=== PATIENT | male | born 1970 | race African-American/Black ===

== ENCOUNTER → 2017-04-05 | Day surgery (SDC) | payer MEDICARE, OTHER ==
[~2017-04-05] MED LIST: ACETAMINOPHEN 1000 MG/100 ML 100 ML IV ONE; ACETAMINOPHEN/HYDROcodone 325 MG/5 MG TAB ONE; BUPIVACAINE/EPINEPHRINE 0.25% 50 ML VIAL ONE; LIDOCAINE 1.5%/EPINEPHrine 1:200,000 PF SOLN 30 ML AMP ONE; MEPERIDINE HCL 25 MG/ML VIAL ONE; MIDAZOLAM HCL 2 MG/2 ML VIAL ONE; MORPHINE SULFATE 4 MG/ML INJ ONE; PROPOFOL 200 MG/20 ML AMP IV ONE; SODIUM CHLOR 0.9% 250 ML BAG IV ONE; VANCOMYCIN HCL 1000 MG VIAL ONE; ceFAZolin INJ 1,000 MG VIAL ONE
--- NOTE | 2017-04-05 12:07 | MP ---
cc: JYOTI SEGAL M.D., SOU[place] DATE OF SURGERY: 04/05/2017 PREOPERATIVE DIAGNOSIS 1. Soft tissue masses, left scalp, left cheek, left chest wall and infraumbilical skin. 2. Umbilical hernia, reducible. POSTOPERATIVE DIAGNOSIS 1. Soft tissue masses, left scalp 1 x 1 cm, left cheek 1 x 1 cm, left chest wall 1 x 1 cm, and infraumbilical skin 1 x 2 cm. 2. Umbilical hernia, reducible. ANESTHESIA LMA. SURGEON Josafat. ESTIMATED BLOOD LOSS 20 mL. FLUIDS 600 mL crystalloid. COMPLICATIONS None. DRAINS None. SPECIMEN Soft tissue masses to pathology. PROCEDURE IN DETAIL The patient was seen in the holding area and the four sites marked by the undersigned and confirmed by the patient. He was taken to the operating room, placed on the operating room table in a supine position. After an adequate level of laryngeal mask anesthesia was instituted the scalp and cheek were shaved, prepped and draped. Skin and subcutaneous tissue was infiltrated with local anesthetic. An elliptical incision was made in the scalp around what appeared to be a pore and sharp excision ensued. A sebaceous cyst (1 x 1 cm) was completely excised from the scalp. Bleeding was controlled with electrocautery and the wound closed in two layers with interrupted 3-0 Vicryl suture and Steri-Strips. Attention was then turned to the left cheek where further injections were made with local anesthetic. An oblique incision was made directly over the mass. A white liquidy material exuded from the lesion. The entire cyst wall was completely excised and the area that had been excised from was cauterized. With complete hemostasis achieved, the wound was closed in two layers with interrupted 3-0 Vicryl suture and 5-0 PDS in a running subcuticular fashion. The wound was dressed with Steri-Strips. The left chest and umbilical area were then separately prepped and draped again and local anesthetic was injected into each of these sites. The left chest wall was incised and a second sebaceous cyst was completely excised (1 x 1 cm). The wound was made hemostatic and then closed in two layers with interrupted 3-0 Vicryl suture and Steri-Strips. Attention was then turned to the umbilicus. A transverse incision was made just below the umbilicus after injection with local anesthetic. Careful dissection revealed the lesion to be within the skin itself. A small ellipse of skin was removed with the lesion (1 x 2 cm). This was passed off the table. Dissection was then carried down to the umbilicus which was then circumferentially dissected. The defect was opened and was seen to be comprised of reducible preperitoneal fat. This was reduced into the abdominal cavity and after slightly freshening the fascial edges the wound was closed in a transverse fashion with interrupted #1 Prolene suture. The remaining local anesthetic was injected into the fascia and the umbilical skin was then tacked down with a 3-0 Vicryl suture. The wound was closed with interrupted 3-0 Vicryl suture and the skin closed with 5-0 PDS in a running subcuticular fashion. The wound was dressed with a Steri-Strip, a 4x4 and Tegaderm. Air was aspirated from under the bandage to create a pressure bandage. The patient was then extubated and taken back to the recovery room in stable condition. Sponge, needle and instrument counts were reported to be correct. The patient tolerated the procedure well. MD CAITLIN Isaac/GAURAV /11:20 AM /11:55 AM SHANNAN
== END | disposition home or self-care (01) ==
LOC: ESDC 07:38
PROVIDERS: ATTEND Surgery Trauma Surgery
DX: L72.3 Sebaceous cyst (principal); R22.0 Localized swelling, mass and lump, head; R22.2 Localized swelling, mass and lump, trunk; K42.9 Umbilical hernia without obstruction or gangrene
CPT/HCPCS: 00300; 00400; 11401; 11402; 11421; 11441; 12032; 12051; 49585; 88304; J0131; J0690; J2175; J2250; J2270; J3010; J3370; J7050; 88305

== ENCOUNTER 2017-09-15 11:55 | Emergency (ER) | payer OTHER, MEDICARE ==
[~2017-09-15] VITALS: Ht 177.8 cm; Wt 107.0 kg
[2017-09-15 12:11] VITALS: BP 132/72; PULSE 72; RESP 16; TEMP 98.5; O2SAT 97
[2017-09-15] MEDS ORDERED: SIMV20TA PO (12:36)
[2017-09-15] MEDS ORDERED: MIRA25TA PO (12:36)
[2017-09-15] MEDS ORDERED: CLON1 PO (12:36)
[2017-09-15] MEDS ORDERED: HYDR25TA5 PO (12:36)
[2017-09-15] MEDS ORDERED: HYDR-3583 PO (12:36)
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
[2017-09-15] MEDS ORDERED: ACETAMINOPHEN/HYDROcodone 325 MG/10 MG TAB PO ONE (15:00)
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
[2017-09-15 16:06] VITALS: RESP 18
== END 2017-09-15 16:07 | disposition home or self-care (01) ==
LOC: PHEFT 11:55
DX: S13.4XXA Sprain of ligaments of cervical spine, initial encounter (principal); M54.5 Low back pain; R51 Headache; I10 Essential (primary) hypertension; E78.00 Pure hypercholesterolemia, unspecified; N32.81 Overactive bladder; F41.8 Other specified anxiety disorders; V89.2XXA Person injured in unspecified motor-vehicle accident, traffic, initial encounter
CPT/HCPCS: 72125; 99283

== ENCOUNTER 2017-09-19 23:45 | Emergency (ER) | payer OTHER, MEDICARE ==
[~2017-09-19] VITALS: Ht 177.8 cm; Wt 106.5 kg
[~2017-09-19 23:45] MED LIST changes: -ACETAMINOPHEN 1000 MG/100 ML 100 ML IV ONE; -ACETAMINOPHEN/HYDROcodone 325 MG/5 MG TAB ONE; -BUPIVACAINE/EPINEPHRINE 0.25% 50 ML VIAL ONE; +CLON1 PO; +HYDR-3583 PO; +HYDR25TA5 PO; -LIDOCAINE 1.5%/EPINEPHrine 1:200,000 PF SOLN 30 ML AMP ONE; -MEPERIDINE HCL 25 MG/ML VIAL ONE; -MIDAZOLAM HCL 2 MG/2 ML VIAL ONE; +MIRA25TA PO; -MORPHINE SULFATE 4 MG/ML INJ ONE; -PROPOFOL 200 MG/20 ML AMP IV ONE; +SIMV20TA PO; -SODIUM CHLOR 0.9% 250 ML BAG IV ONE; -VANCOMYCIN HCL 1000 MG VIAL ONE; -ceFAZolin INJ 1,000 MG VIAL ONE
[2017-09-19 23:50] VITALS: BP 128/78; PULSE 89; RESP 18; TEMP 97.9; O2SAT 98
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
[2017-09-20] MEDS ORDERED: KETOROLAC TROMETHAMINE 60 MG/2 ML (IM) VIAL IM ONE (00:30)
[2017-09-20] MEDS ORDERED: LORazepam 2 MG/ML VIAL IM ONE (00:30)
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
[2017-09-20] MEDS ORDERED: BACL20TA PO (01:23)
== END 2017-09-20 01:56 | disposition home or self-care (01) ==
LOC: PHED 23:45
DX: M25.512 Pain in left shoulder (principal); F41.9 Anxiety disorder, unspecified; F32.9 Major depressive disorder, single episode, unspecified; I10 Essential (primary) hypertension; E78.00 Pure hypercholesterolemia, unspecified; F43.10 Post-traumatic stress disorder, unspecified; Z79.899 Other long term (current) drug therapy; Z88.6 Allergy status to analgesic agent; Z88.5 Allergy status to narcotic agent
CPT/HCPCS: 73200; 96372; 99283; J1885; J2060